=== PATIENT | male | born 1980 | race Caucasian/White ===

== ENCOUNTER 2025-06-14 12:02 | Emergency (ER) | payer MEDICAID ==
[~2025-06-14] VITALS: Ht 180.3 cm; Wt 143.0 kg
[2025-06-14 12:11] VITALS: O2SAT 99
[2025-06-14] MEDS ORDERED: IBUP-2028 MT (14:32)
[2025-06-14 15:11] VITALS: BP 140/88; PULSE 68; RESP 16; TEMP 36.9; O2SAT 99
== END 2025-06-14 15:15 | disposition home or self-care (01) ==
LOC: ER 12:02
DX: M72.2 Plantar fascial fibromatosis (principal)
CPT/HCPCS: 73590; 73600; 99284